=== PATIENT | male | born 1960 | race American Indian/Alaskan Native ===

== ENCOUNTER 2020-01-23 13:42 | Emergency (ER) | payer OTHER ==
[~2020-01-23] VITALS: Ht 175.3 cm; Wt 138.8 kg
[2020-01-23 16:40] VITALS: BP 131/77
== END 2020-01-23 17:09 | disposition home or self-care (01) ==
LOC: ER 13:43
DX: S30.0XXA Contusion of lower back and pelvis, initial encounter (principal); I10 Essential (primary) hypertension; E11.9 Type 2 diabetes mellitus without complications; M25.522 Pain in left elbow; V49.9XXA Car occupant (driver) (passenger) injured in unspecified traffic accident, initial encounter; Y93.89 Activity, other specified; Y92.481 Parking lot as the place of occurrence of the external cause; Y99.8 Other external cause status
CPT/HCPCS: 72220; 73080; 99284

== ENCOUNTER 2021-10-22 14:16 | Inpatient (IN) | payer MEDICARE, OTHER ==
[~2021-10-22] VITALS: Ht 175.3 cm; Wt 134.1 kg
[2021-10-22 14:57] LABS: BASOPHILS % (AUTO) 0.5 % (0-1); EOSINOPHILS # (AUTO) 0.2 X10'3 (0-0.9); EOSINOPHILS % (AUTO) 2.2 % (0-6); HEMATOCRIT 44.7 % (42.0-52.0); HEMOGLOBIN 15.5 g/dl (14.0-17.9); LYMPHOCYTES % (AUTO) 9.9 % (21-51); MEAN CORPUSCULAR HEMOGLOBIN 30.3 PG (27.0-31.0); MEAN CORPUSCULAR HGB CONC 34.6 g/dL (33.0-36.5); MEAN CORPUSCULAR VOLUME 87.7 FL (78-98); MEAN PLATELET VOLUME 7.6 FL (7.4-10.4); MONOCYTES # (AUTO) 0.7 X10'3 (0-0.9); MONOCYTES % (AUTO) 7.6 % (2-12); NEUTROPHILS # (AUTO) 7.7 X10'3 (1.8-7.7); NEUTROPHILS % (AUTO) 79.8 % (42-75); PLATELET COUNT 271 X10'3 (140-440); RED CELL DISTRIBUTION WIDTH 13.7 % (11.5-14.5); WHITE BLOOD COUNT 9.7 X10'3 (4.5-11.0)
[2021-10-22 15:09] LABS: ALANINE AMINOTRANSFERASE 35 U/L (12-78); ALBUMIN 3.8 G/DL (3.4-5.0); ALBUMIN/GLOBULIN RATIO 0.9 (1.1-1.5); ALKALINE PHOSPHATASE 64 IU/L (46-116); ANION GAP 8 (8-16); ASPARTATE AMINO TRANSFERASE 23 U/L (10-37); BILIRUBIN,TOTAL 1.6 MG/DL (0.1-1.0); BLOOD UREA NITROGEN 17 MG/DL (7-18); BUN/CREATININE RATIO 15.2 (5.4-32.0); CALCIUM 9.5 MG/DL (8.5-10.1); CHLORIDE 102 MMOL/L (99-107); CREATININE 1.12 MG/DL (0.60-1.10); GLUCOSE 181 MG/DL (70-104); POTASSIUM 3.7 MMOL/L (3.5-5.1); SODIUM 142 MMOL/L (135-145); TOTAL CARBON DIOXIDE 32.2 MMOL/L (24-32); TOTAL PROTEIN 7.9 G/DL (6.4-8.2); eGFR 66 ML/MIN
--- NOTE | 2021-10-22 15:37 | NUR ---
RAMAN HARPER [phone]
[2021-10-22 16:47] LABS: APTT 27 SECONDS (22-32)
[2021-10-22] MEDS ORDERED: LACT1CAP65 PO (17:17)
[2021-10-22] MEDS ORDERED: FURO-150 PO (17:17)
[2021-10-22] MEDS ORDERED: LIDO1ADH44 TOP (17:17)
[2021-10-22] MEDS ORDERED: DICL100G30 TOP (17:17)
[2021-10-22] MEDS ORDERED: CARV25TA2 PO (17:17)
[2021-10-22] MEDS ORDERED: ATOR20TA66 PO (17:17)
[2021-10-22] MEDS ORDERED: METF-900 PO (17:17)
[2021-10-22] MEDS ORDERED: LISI20TA28 PO (17:17)
[2021-10-22] MEDS ORDERED: HYDR12.55 PO (17:17)
[2021-10-22] MEDS ORDERED: BETA15CR4 TOP (17:17)
[2021-10-22 17:25] LABS: MAGNESIUM 2.4 MG/DL (1.5-2.4)
[2021-10-22 17:28] LABS: D-DIMER 0.42 MG/L FEU (0-0.50)
[2021-10-22] MEDS ORDERED: insulin Lispro (HumaLOG) vial - multi-dose SQ SCH (17:35)
[2021-10-22] MEDS ORDERED: HYDROcodone/acetaminophen 10/325mg tab PO PRN (17:35)
[2021-10-22] MEDS ORDERED: nitroGLYCERIN 0.4mg SUBLingual tab SL PRN (17:35)
[2021-10-22] MEDS ORDERED: HYDROcodone/acetaminophen 5mg/325mg tablet PO PRN (17:35)
[2021-10-22] MEDS ORDERED: acetaminophen 325mg tablet PO PRN ×2 (17:35)
[2021-10-22] MEDS ORDERED: magnesium hydroxide 30ml (MOM) UD suspension PO PRN (17:35)
[2021-10-22] MEDS ORDERED: glucagon, human recombinant 1mg kit SUBCUT PRN (17:35)
[2021-10-22] MEDS ORDERED: dextrose 50%-water 50ml dispensing syringe IV PRN ×2 (17:35)
[2021-10-22] MEDS ORDERED: dextrose ORAL solution 15 GM/59 ML bottle PO PRN ×2 (17:35)
[2021-10-22] MEDS ORDERED: mag hydrox/Alum hydrox/simeth 30ml oral suspension PO PRN (17:35)
[2021-10-22] MEDS ORDERED: ondansetron/PF 4mg/2ml inj IV PRN (17:35)
[2021-10-22] MEDS ORDERED: MESSAGE TO PHARMACY PO ONE (17:35)
[2021-10-22] MEDS ORDERED: morphine 2 MG/ML inj. syringe IV PRN ×2 (17:35)
[2021-10-22 17:39] LABS: C-REACTIVE PROTEIN 0.77 MG/DL (0.0-0.5)
[2021-10-22] MEDS ORDERED: DICLOFENAC SODIUM TOP PRN (17:40)
[2021-10-22] MEDS ORDERED: LIDOcaine 5% patch TP PRN (17:40)
[2021-10-22 18:13] VITALS: BP 146/95
--- NOTE | 2021-10-22 18:47 | NUR ---
CBG 141 - ordered a heart healthy and carb count tray
[2021-10-22] MEDS ORDERED: diazepam 5mg tablet PO ONE ×2 (19:45→21:40)
[2021-10-22] MEDS ORDERED: docusate sod 100mg capsule PO SCH (20:00)
[2021-10-22] MEDS ORDERED: betamet diprop/prop gly 0.05% cream 15gm TP SCH (20:00)
[2021-10-22] MEDS ORDERED: carVEDilol 12.5mg tablet PO SCH (20:00)
--- NOTE | 2021-10-22 20:13 | NUR ---
pt reports feeling better after valium - med reconciled. will ctm
[2021-10-22] MEDS ORDERED: insulin glargine (Lantus) pen - multi-dose SQ SCH (21:00)
--- NOTE | 2021-10-22 21:48 | NUR ---
at bedside discussing AMA. Lili has elected to leave AMA after refusing a nasal swab for covid for admission purposes due to "the luz robots on the swab". AMA form signed with charge nurse reji. See MAR> lili left pwd in his wheelchair.
[2021-10-23] MEDS ORDERED: atorvastatin 20mg tablet PO SCH (08:00)
[2021-10-23] MEDS ORDERED: HYDROchlorothiazide 12.5mg capsule PO SCH (08:00)
[2021-10-23] MEDS ORDERED: lisinopril 20mg tablet PO SCH (08:00)
[2021-10-23] MEDS ORDERED: furosemide 20MG tablet PO SCH (08:00)
[2021-10-23] MEDS ORDERED: lactobacillus rhamnosus 10,000 MMU CELLS/CAPSULE PO SCH (08:00)
[2021-10-23] MEDS ORDERED: METFORMIN HCL 500 MG PO SCH (08:00)
[2021-10-23] MEDS ORDERED: aspirin 81mg, enteric-coated 1 TAB TABLET.DR PO SCH (08:00)
== END 2021-10-22 22:02 | disposition left against medical advice (07) | DRG 281 ==
LOC: ER 14:19 → ED HOLD 17:38
PROVIDERS: ADMIT Internal Medicine; ATTEND Internal Medicine
DX: I21.4 Non-ST elevation (NSTEMI) myocardial infarction (principal); Z68.41 Body mass index [BMI] 40.0-44.9, adult; I20.0 Unstable angina; E11.9 Type 2 diabetes mellitus without complications; Z53.29 Procedure and treatment not carried out because of patient's decision for other reasons; E66.01 Morbid (severe) obesity due to excess calories; E78.00 Pure hypercholesterolemia, unspecified; E78.5 Hyperlipidemia, unspecified; I10 Essential (primary) hypertension; Z79.899 Other long term (current) drug therapy
CPT/HCPCS: 36415; 71045; 80053; 82948; 83036; 83735; 83880; 84145; 84484; 85025; 85379; 85610; 85730; 86140; 93005; 99285; G0378; J1815

== ENCOUNTER 2023-01-26 05:53 | Inpatient (IN) | payer MEDICARE, OTHER ==
[2023-01-21 11:36] LABS: ALBUMIN 3.8 G/DL (3.4-5.0); ALKALINE PHOSPHATASE 71 IU/L (46-116); BLOOD UREA NITROGEN 14 MG/DL (7-18); BUN/CREATININE RATIO 12.8 (10.0-20.0); CALCIUM 9.6 MG/DL (8.5-10.1); CHLORIDE 100 MMOL/L (99-107); CREATININE 1.09 MG/DL (0.60-1.10); PRE OP ALT 38 U/L (30-65); PRE OP ANION GAP 10 (8-16); PRE OP AST 24 U/L (10-37); PRE OP BILIRUB, TOTAL 1.8 MG/DL (0.0-1.0); PRE OP GLUCOSE 132 MG/DL (70-104); PRE OP POTASSIUM 3.9 MMOL/L (3.4-5.1); PRE OP SODIUM 137 MMOL/L (135-145); TOTAL CARBON DIOXIDE 27.5 MMOL/L (24-32); TOTAL PROTEIN 7.8 G/DL (6.4-8.2); eGFR 68 ML/MIN
[2023-01-21 11:48] LABS: BASOPHILS % (AUTO) 0.3 % (0-1); EOSINOPHILS # (AUTO) 0.1 X10'3 (0-0.9); EOSINOPHILS % (AUTO) 1.4 % (0-6); LYMPHOCYTES # (AUTO) 0.9 X10'3 (1.1-4.8); LYMPHOCYTES % (AUTO) 9.3 % (21-51); MEAN CORPUSCULAR HEMOGLOBIN 29.9 PG (27.0-31.0); MEAN CORPUSCULAR HGB CONC 34.5 g/dL (33.0-36.5); MEAN CORPUSCULAR VOLUME 86.6 FL (78-98); MEAN PLATELET VOLUME 7.7 FL (7.4-10.4); MONOCYTES # (AUTO) 0.8 X10'3 (0-0.9); MONOCYTES % (AUTO) 8.8 % (2-12); NEUTROPHILS # (AUTO) 7.6 X10'3 (1.8-7.7); NEUTROPHILS % (AUTO) 80.2 % (42-75); PRE OP HEMATOCRIT 48.1 % (42.0-52.0); PRE OP HEMOGLOBIN 16.6 g/dL (14.0-17.9); PRE OP PLATELET COUNT 255 X10'3 (140-440); RED BLOOD COUNT 5.55 X10'6 (4.70-6.10); RED CELL DISTRIBUTION WIDTH 14.3 % (11.5-14.5)
[~2023-01-26] VITALS: Ht 175.3 cm; Wt 131.2 kg
[2023-01-26] VITALS (23 sets, daily range): BP systolic 90–156; BP diastolic 47–96
[~2023-01-26 05:53] MED LIST: ASPI-611 PO; ATOR80TA PO; CARV25TA2 PO; CEPH500C2 PO; DOCUMENT DATE & TIME OF BETA-BLOCKER PO ONE; DULO-31 PO; EMPA10TA PO; FURO-150 PO; GARL10004 PO; HYDR12.55 PO; IBUP-1985 PO; LACT1CAP65 PO; LIDO1ADH44 TOP; LISI20TA28 PO; MUPI1OIN5 TOP; OMEG-5 PO; SEMA1PEN3 SQ; TRAM50TA2 PO; TRIA15CR61 TOP; VITA-268 PO; ceFAZolin inj. 3,000 MG in normal saline 100ml IV soln 100 ML IV ONE; famotidine 20mg tablet PO ONE; ringers solution, lacted 1,000 ML IV SCH; tranexamic acid 650mg tablet PO ONE; vancomycin 1,500 MG in NS 300ml IV soln IV ONE
[2023-01-26] MEDS ORDERED: diazepam 5mg tablet PO ONE (07:30)
--- NOTE | 2023-01-26 07:30 | NUR ---
PT STATES HE BATHED AND USED BACTROBAN OINTMENT FOR THE LAST 5 DAYS PER JOINT REPLACEMENT PROTOCOLS. STATES HE HAS FULL SENSATION IN ALL EXTREMITIES AND NO DEFICITS NOTED. Addendum: 01/26/23 at 1227 by Zenaida Frias RN Amended: Links added.
--- NOTE | 2023-01-26 07:30 | NUR ---
PT STATES HE HAS SLIGHT COLOR DISTORTION W/BLUE COLORS. Addendum: 01/26/23 at 1231 by Zenaida Frias RN Amended: Links added.
[2023-01-26] MEDS ORDERED: morphine 4 MG/ML inj SYRINge IV PRN (08:25)
[2023-01-26] MEDS ORDERED: ondansetron/PF 4mg/2ml inj IV PRN ×2 (08:25→11:35)
[2023-01-26] MEDS ORDERED: meperidine/PF 25mg/ml syringe IV PRN ×2 (08:25)
[2023-01-26] MEDS ORDERED: ringers solution, lacted 1,000 ML IV SCH (08:25)
[2023-01-26] MEDS ORDERED: proCHLORperazine 10 MG/2 ml inj IV PRN (08:25)
[2023-01-26] MEDS ORDERED: morphine 2 MG/ML inj. syringe IV PRN (08:25)
[2023-01-26] MEDS ORDERED: ketorolac trometh. 30mg/ml inj. ONE (09:15)
[2023-01-26] MEDS ORDERED: ROPIVAcaine 0.5% (5mg/ml) 30ml vial ONE ×2 (09:16→09:38)
[2023-01-26] MEDS ORDERED: GABA600T13 PO (09:20)
[2023-01-26] MEDS ORDERED: MIDAZolam 1 MG/ML 5ML VIAL ONE (09:37)
[2023-01-26] MEDS ORDERED: fentaNYL/PF 50MCG/1 ML 2ML syringe ONE (09:37)
[2023-01-26] MEDS ORDERED: propofol inj 20 ML IV ONE (09:38)
[2023-01-26] MEDS ORDERED: LIDOcaine 1%/PF 5ML 10 MG/ML VIAL ONE (09:39)
[2023-01-26] MEDS ORDERED: rocuronium 10mg/ml inj IV ONE (10:15)
[2023-01-26] MEDS ORDERED: ePHEDrine 50MG/ML INJ. ONE (10:15)
[2023-01-26] MEDS ORDERED: ROPIVAcaine 0.2%/PF PUMP/bolus 545 ML INTERSCALE SCH (10:35)
[2023-01-26] MEDS ORDERED: ROPIVAcaine 0.2% (10 MG/5 ML) BOLUS INJECTION INTERSCALE PRN (10:35)
[2023-01-26] MEDS ORDERED: HYDROmorphone 1 mg/ml syringe IV PRN (11:35)
[2023-01-26] MEDS ORDERED: SEMAGLUTIDE 1 MG/0.75 ML SQ SCH (11:35)
[2023-01-26] MEDS ORDERED: bisacodyl 10mg suppository rectal RC PRN (11:35)
[2023-01-26] MEDS ORDERED: HYDROmorphone inj. 0.5 MG/0.5 ML DISP.SYRIN IV PRN (11:35)
[2023-01-26] MEDS ORDERED: oxyCODONE IR 5mg (immed. release) tablet PO PRN ×2 (11:35)
[2023-01-26] MEDS ORDERED: HYDROcodone/acetaminophen 10/325mg tab PO PRN ×2 (11:35)
[2023-01-26] MEDS ORDERED: magnesium hydroxide 30ml (MOM) UD suspension PO PRN (11:35)
[2023-01-26] MEDS ORDERED: LIDOCAINE TOP PRN (11:35)
[2023-01-26] MEDS ORDERED: acetaminophen 325mg tablet PO PRN (11:35)
[2023-01-26] MEDS ORDERED: diphenhydrAMINE 25mg capsule PO PRN ×2 (11:35)
[2023-01-26] MEDS ORDERED: ibuprofen 200mg tablet PO PRN (11:35)
[2023-01-26] MEDS ORDERED: naloxone 0.4 mg/ml inj IV PRN (11:35)
[2023-01-26] MEDS ORDERED: ROPIVAcaine 0.5% (5mg/ml) 30ml vial IJ ONE (11:50)
[2023-01-26] MEDS ORDERED: ketorolac trometh. 30mg/ml inj. IM ONE (11:50)
--- NOTE | 2023-01-26 11:55 | NUR ---
Received from OR via BED, accompanied by Anesthesiologist, DR SEGURA-report given by Anesthesiologist. PATIENT WAKING UP, DENIES PAIN, V/S WNL, SCD ON , PIV 20G LUE, DRESSING SHOULDER WRAP TO RIGHT SIDE CDI W/ ONQ CATHETER PRESENT AND COLD POWDER PACK IN PLACE, PULSES PRESENT, FINGERS PINK/WARM, PT CAME OUT INCONTINENT OF STOOL-CLEANED UP BY NURSING.
[2023-01-26] MEDS: meperidine/PF 25mg/ml syringe IV PRN ×2 (12:16→12:52)
[2023-01-26] MEDS ORDERED: acetaminophen 1,000mg/100ml IV 100 ML IV ONE (12:20)
[2023-01-26] MEDS: acetaminophen 325mg tablet PO SCH ×2 (14:00→20:42)
--- NOTE | 2023-01-26 14:00 | NUR ---
PT PAINFUL BUT IS MORE COMFORTABLE WHEN SITTING UP HIGH IN THE BED, VSS, ON-Q STARTED AND RUNNING AT 4ML/HR, ASSESSMENT UNCHANGED
--- NOTE | 2023-01-26 16:00 | NUR ---
VSS, PT HAS BEEN COMFORTABLE AND SLEEPING WELL, NO CHANGES IN ASSESSMENT, ARM IN SLING WITH ON-Q GOING STILL AT 4ML/HR, STILL WAITING FOR A BED, AT BEDSIDE NOW.
[2023-01-26] MEDS: ceFAZolin/D5W- 1GM premix 50 ML IV SCH (16:40)
[2023-01-26] MEDS: potassium cl 20mEq in 1/2 NS 1,000 ML IV SCH ×2 (16:40→19:35)
--- NOTE | 2023-01-26 17:50 | NUR ---
VSS, NO CHANGES, REPORT CALLED TO RN-ALL QUESTIONS ANSWERED, TAKEN WITH ALL BELONGINGS AND W/C TO ROOM 344B, BED LOW AND LOCKED, CALL LIGHT IN REACH, PRIMARY RN IN TO RECEIVE PT.
--- NOTE | 2023-01-26 18:00 | NUR ---
Received to room 344B on bed. a/o x4, at bedside
--- NOTE | 2023-01-26 18:05 | NUR ---
Patient in room [facility] 344. I have received report from ANA Ayala and had the opportunity to ask questions and assume patient care.
[2023-01-26] MEDS ORDERED: vancomycin/NS 1 GM ADD-VANTAGE 250 ML IV SCH (20:00)
[2023-01-26] MEDS: cephalexin 500mg capsule PO SCH (20:42)
[2023-01-26] MEDS: furosemide 20MG tablet PO SCH (20:43)
[2023-01-26] MEDS: carVEDilol 12.5mg tablet PO SCH (20:44)
[2023-01-26] MEDS ORDERED: lisinopril 20mg tablet PO SCH (21:00)
[2023-01-26] MEDS ORDERED: sennosides 8.6mg tablet PO SCH (21:00)
[2023-01-26] MEDS ORDERED: atorvastatin 20mg tablet PO SCH (21:00)
[2023-01-27] MEDS: ceFAZolin/D5W- 1GM premix 50 ML IV SCH (00:19)
[2023-01-27 02:00] VITALS: BP 106/70
[2023-01-27] MEDS: acetaminophen 325mg tablet PO SCH ×2 (02:21→07:51)
[2023-01-27] MEDS: potassium cl 20mEq in 1/2 NS 1,000 ML IV SCH (04:30)
[2023-01-27 06:00] VITALS: BP 108/66
[2023-01-27 06:13] LABS: ANION GAP 8 (8-16); CHLORIDE 103 MMOL/L (99-107); POTASSIUM 4.1 MMOL/L (3.5-5.1); SODIUM 136 MMOL/L (135-145); TOTAL CARBON DIOXIDE 24.8 MMOL/L (24-32)
[2023-01-27 06:15] LABS: BASOPHILS % (AUTO) 0.2 % (0-1); EOSINOPHILS % (AUTO) 0 % (0-6); HEMATOCRIT 40.8 % (42.0-52.0); HEMOGLOBIN 13.8 g/dl (14.0-17.9); LYMPHOCYTES # (AUTO) 0.5 X10'3 (1.1-4.8); LYMPHOCYTES % (AUTO) 3.2 % (21-51); MEAN CORPUSCULAR HEMOGLOBIN 29.2 PG (27.0-31.0); MEAN CORPUSCULAR HGB CONC 33.8 g/dL (33.0-36.5); MEAN CORPUSCULAR VOLUME 86.4 FL (78-98); MEAN PLATELET VOLUME 7.9 FL (7.4-10.4); MONOCYTES # (AUTO) 1.1 X10'3 (0-0.9); MONOCYTES % (AUTO) 6.6 % (2-12); NEUTROPHILS # (AUTO) 15.2 X10'3 (1.8-7.7); PLATELET COUNT 259 X10'3 (140-440); RED BLOOD COUNT 4.72 X10'6 (4.70-6.10); RED CELL DISTRIBUTION WIDTH 14.4 % (11.5-14.5); WHITE BLOOD COUNT 16.8 X10'3 (4.5-11.0)
--- NOTE | 2023-01-27 06:32 | NUR ---
Problems reprioritized. Patient report given, questions answered & plan of care reviewed with ANA Ramirez.
[2023-01-27] MEDS: cephalexin 500mg capsule PO SCH (07:51)
[2023-01-27] MEDS: furosemide 20MG tablet PO SCH (07:52)
[2023-01-27] MEDS: carVEDilol 12.5mg tablet PO SCH (07:52)
[2023-01-27] MEDS ORDERED: duloxetine 30mg CAPSULE.DR PO SCH (08:00)
[2023-01-27] MEDS ORDERED: vitamin B comp w/Vit. C tab 1 TAB TABLET PO SCH (08:00)
[2023-01-27] MEDS ORDERED: EMPAGLIFLOZIN 10 MG TABLET PO SCH (08:00)
[2023-01-27] MEDS ORDERED: lactobacillus rhamnosus 10,000 MMU CELLS/CAPSULE PO SCH (08:00)
[2023-01-27] MEDS ORDERED: HYDROchlorothiazide 12.5mg capsule PO SCH (08:00)
[2023-01-27] MEDS ORDERED: EMPAGLIFLOZIN 25 MG TABLET PO SCH (08:14)
[2023-01-27] MEDS ORDERED: aspirin 325mg tablet PO SCH (08:30)
[2023-01-27 10:00] VITALS: BP 118/74
--- NOTE | 2023-01-27 11:21 | NUR ---
DISCHARGE NOTE: Reviewed all discharge paperwork with pt. Reviewed continued home medication and possible ASE with pt. PIV DC'd, cannula intact, no s/sx bleeding noted, pressure bandage applied. Pt. left with his ice packs, and all of his belongings including his electric w/c. picking him up downstairs. He knows to f/u with his PCP and MD Hurd within 2 weeks and has contact information. States pain medication is at home already waiting for him.
--- NOTE | 2023-01-27 11:28 | NUR ---
Joint surgery consult: Pt s/p R shoulder surgery this admit per EMR. Pt seen by SUZAN at bedside for written/verbal high protein diet ed w/ RD contact information provided. SUZAN encouraged pt to contact dietitian's office if further nutrition questions/concerns. Addendum: 01/27/23 at [address] Amended: Links added.
[2023-01-28] MEDS ORDERED: acetaminophen 325mg tablet PO PRN (11:35)
== END 2023-01-27 11:20 | disposition home or self-care (01) | DRG 483 ==
LOC: PAS IN 05:53 → SUR 3N 15:50
PROVIDERS: ADMIT Orthopaedic Surgery; ATTEND Orthopaedic Surgery
PROC: 0LS30ZZ Reposition Right Upper Arm Tendon, Open Approach (ICD-10-PCS; 2023-01-26)
PROC: 3E0T3BZ Introduction of Anesthetic Agent into Peripheral Nerves and Plexi, Percutaneous Approach (ICD-10-PCS; 2023-01-26)
PROC: 3E0T33Z Introduction of Anti-inflammatory into Peripheral Nerves and Plexi, Percutaneous Approach (ICD-10-PCS; 2023-01-26)
PROC: 0RRJ00Z Replacement of Right Shoulder Joint with Reverse Ball and Socket Synthetic Substitute, Open Approach (ICD-10-PCS; principal; 2023-01-26 09:37)
DX: M19.011 Primary osteoarthritis, right shoulder (principal); M65.811 Other synovitis and tenosynovitis, right shoulder; M75.121 Complete rotator cuff tear or rupture of right shoulder, not specified as traumatic; M75.21 Bicipital tendinitis, right shoulder; Z79.899 Other long term (current) drug therapy; Z79.82 Long term (current) use of aspirin
CPT/HCPCS: 36415; 80051; 80053; 82948; 85025; 87081; 97110; 97161; 97530; A4565; A4615; A4618; A7000; C1776; G0378; J0131; J0690; J1885; J2175; J2250; J2704; J2795; J3010; J3370; J3480; J3490; J7120

== ENCOUNTER 2023-03-25 10:28 | Outpatient (CLI) | payer OTHER ==
[~2023-03-25 10:28] MED LIST changes: -DOCUMENT DATE & TIME OF BETA-BLOCKER PO ONE; -ceFAZolin inj. 3,000 MG in normal saline 100ml IV soln 100 ML IV ONE; -famotidine 20mg tablet PO ONE; -ringers solution, lacted 1,000 ML IV SCH; -tranexamic acid 650mg tablet PO ONE; -vancomycin 1,500 MG in NS 300ml IV soln IV ONE
== END 2023-03-25 23:59 | disposition home or self-care (01) ==
LOC: RAD 10:28
PROVIDERS: ATTEND Registered Nurse
DX: M19.011 Primary osteoarthritis, right shoulder (principal); Z96.611 Presence of right artificial shoulder joint
CPT/HCPCS: 73030